=== PATIENT | female | born 1970 | race African-American/Black ===

== ENCOUNTER 2021-08-10 14:43 | Emergency (ER) | payer OTHER ==
[2021-08-10 15:09] VITALS: TEMP 98.2; BMI 28.7
[2021-08-10] MEDS ORDERED: ASPIRIN 81 MG CHEWABLE TABLETS PO ONE (16:04)
[2021-08-10] MEDS ORDERED: ACETAMINOPHEN 500 MG TABLET (FP) PO ONE (16:04)
[2021-08-10] MEDS ORDERED: ONDANSETRON 4 MG/2 ML VIAL IVPUSH ONE (16:05)
[2021-08-10] MEDS ORDERED: METOCLOPRAMIDE HCL INJECTION 10 MG/2 ML VIAL IVPUSH ONE (16:14)
[2021-08-10] MEDS ORDERED: METOCLOPRAMIDE HCL INJECTION 10 MG/2 ML VIAL ONE (16:22)
[2021-08-10] MEDS ORDERED: ACETAMINOPHEN 325 MG TABLET (FP) ONE (16:22)
[2021-08-10] MEDS ORDERED: ASPIRIN 81 MG CHEWABLE TABLETS ONE (16:23)
[2021-08-10 17:41] LABS: BASO % 1.3 % (0-2.0); EOS % 1.8 % (0-4.5); HEMATOCRIT 40.7 % (32.4-45.2); HEMOGLOBIN 13.2 GM/dL (10.7-15.3); LYMPH % 43.6 % (8-40); MCH 29.4 pg (25.7-33.7); MCHC 32.3 g/dl (32.0-36.0); MEAN CELL VOLUME 90.8 fl (80-96); MONO % 7.8 % (3.8-10.2); NEUT % 45.5 % (42.8-82.8); PLATELET COUNT 255 10^3/uL (134-434); RBC 4.49 M/mm3 (3.60-5.2); RDW 13.9 % (11.6-15.6); WHITE BLOOD COUNT 6.6 K/mm3 (4.0-10.0)
[2021-08-10 17:51] LABS: INR 1.09 (0.83-1.09); PROTHROMBIN TIME (PATIENT) 12.6 SEC (9.7-13.0)
[2021-08-10 17:53] LABS: ACTIVATED PTT 35.5 SECONDS (25.2-36.5)
[2021-08-10 17:59] LABS: ALBUMIN 3.7 g/dl (3.4-5.0); BLOOD UREA NITROGEN 9.2 mg/dL (7-18); CALCIUM 9.6 mg/dL (8.5-10.1)
[2021-08-10 18:02] LABS: CREATININE 0.9 mg/dL (0.55-1.3)
[2021-08-10 18:04] LABS: BILIRUBIN,TOTAL 0.7 mg/dL (0.2-1); TOT PROT 7.4 g/dl (6.4-8.2)
[2021-08-10 18:13] LABS: EPI CELLS 3 /uL (0-25.1); HYALINE CASTS 1 /uL (0-3.1); URINE APPEARANCE CLEAR; URINE BACTERIA 4 /uL (0-1359); URINE BILIRUBIN NEGATIVE (NEGATIVE); URINE COLOR YELLOW; URINE GLUCOSE (UA) NEGATIVE (NEGATIVE); URINE KETONE NEGATIVE (NEGATIVE); URINE LEUK ESTERASE TRACE (NEGATIVE); URINE NITRITE NEGATIVE (NEGATIVE); URINE PROTEIN NEGATIVE (NEGATIVE); URINE RBC 5 /uL (0-23.9); URINE UROBILINOGEN 0.2 mg/dL (0.2-1.0); URINE WBC 17 /uL (0-25.8)
[2021-08-10 22:43] VITALS: BP 104/54; PULSE 66
== END 2021-08-10 23:16 | disposition home or self-care (01) ==
LOC: JER 14:43
PROC: 3E033GC Introduction of Other Therapeutic Substance into Peripheral Vein, Percutaneous Approach (ICD-10-PCS; principal; 2021-08-10)
DX: R07.89 Other chest pain (principal); R10.32 Left lower quadrant pain
CPT/HCPCS: 36415; 71045-TC-FY; 74177-TC; 80053; 81003; 83690; 84439; 84443; 84484; 84703; 85025; 85610; 85730; 87086; 93005; 93010; 96374; 99285-25; C9803; Q9967; U0003; U0005

== ENCOUNTER 2022-05-10 04:31 | Day surgery (SDC) | payer OTHER ==
[2022-05-06 11:54] VITALS: BMI 32.8
[2022-05-10] MEDS ORDERED: LIDOCAINE HCL/PF 1% SDV 5ML VIAL ONE (07:38)
[2022-05-10] MEDS ORDERED: BUPIVACAINE HCL/PF 0.75% 10 ML VIAL ONE (07:38)
[2022-05-10 11:46] VITALS: RESP 18
[2022-05-10] MEDS ORDERED: LIDOCAINE HCL 1% PRESERVATIVE FREE - 30ML VIAL IJ ONE ×2 (12:43→12:45)
[2022-05-10] MEDS ORDERED: BUPIVACAINE HCL/PF 0.75% 10 ML VIAL PNB ONE (12:43)
[2022-05-10 13:22] VITALS: BP 112/72; PULSE 87; TEMP 97.8
== END 2022-05-10 13:18 | disposition home or self-care (01) ==
LOC: JASU-SURG 04:31
PROVIDERS: ATTEND Pain Medicine Pain Medicine
PROC: BR16YZZ Fluoroscopy of Lumbar Facet Joint(s) using Other Contrast (ICD-10-PCS; 2022-05-10)
PROC: 3E0T3BZ Introduction of Anesthetic Agent into Peripheral Nerves and Plexi, Percutaneous Approach (ICD-10-PCS; principal; 2022-05-10 12:37)
DX: M47.816 Spondylosis without myelopathy or radiculopathy, lumbar region (principal)
CPT/HCPCS: 76000-TC-FY

== ENCOUNTER 2024-09-05 07:11 | Day surgery (SDC) | payer OTHER ==
[2024-09-04 10:50] VITALS: BMI 29.9
[2024-09-05 09:19] VITALS: TEMP 98.3
[2024-09-05 09:40] VITALS: RESP 17
[2024-09-05 09:43] VITALS: BP 108/67; PULSE 81
== END 2024-09-05 10:00 | disposition home or self-care (01) ==
LOC: JASU-ENDO 07:11
PROVIDERS: ATTEND Internal Medicine Gastroenterology
PROC: 0DBP8ZX Excision of Rectum, Via Natural or Artificial Opening Endoscopic, Diagnostic (ICD-10-PCS; principal; 2024-09-05 09:30)
DX: Z12.11 Encounter for screening for malignant neoplasm of colon (principal); D12.8 Benign neoplasm of rectum; K63.89 Other specified diseases of intestine
CPT/HCPCS: 88305-TC; 88342-TC